=== PATIENT | male | born 1945 | race Caucasian/White ===

== ENCOUNTER 2023-10-31 18:00 | Outpatient (RCR) | payer SELFPAY ==
[~2023-10-31 18:00] MED LIST: ALDACTONE 25MG25 M1 PO; ASPIRIN 81M81 MG/TA2 PO; ATROVENT NASAL15 ML NS; AVAPRO300 M1 PO; BETAPACE 80MG80 MG PO; CARTIA XT120 MG PO; CEPHALEXIN500 M1 PO; COUMADIN 5MG5 MG/TAB PO; COUMADIN 6MG6 MG/TAB PO; COUMADIN5 MG PO; DECADRON 4MG TAB4 MG PO; DEMADEX 20MG20 M1; DOXYCYCLINE HY100 MG PO; FISH OIL 1000MG1 CAP PO; FLOMAX 0.40.4 MG/CAP PO; IPRATROPIUM BROM3 M1 IH; KLOR-CON M2020 MEQ PO; LASIX 20MG TABL20 MG PO; LASIX 40MG TABL40 MG PO; LIPITOR 80MG80 MG PO; LIPITOR20 MG PO; MAG-OX 400400 MG/TAB PO; MICARDIS80 MG PO; NEXIUM 40MG40 MG PO; NORVASC2.5 MG PO; PACERONE200 MG PO; PLAVIX 75MG TAB75 MG PO; PRAVACHOL 40MG40 MG PO; PREDNISONE20 MG PO; PROPAFENONE HC225 MG PO; PROVENTIL0.09 MG/A1 IH; RT SPIRIVA18 MCG IH; SODIUM BICARBON1 POW PO; SPIRIVA RE2.5 MCG/Ac IH; TEFLARO 60600 MG/VIA IV; TIKOSYN0.25 MG PO; TIKOSYN0.5 MG PO; TOPROL XL 50MG50 MG PO; TRELEGY ELLIPT1 EAC1 IH; VANCOCIN HCL1 GM IV; VANCOMYCIN 11 G/VIA1 IV; VITAMIN B122500 MCG PO; VITAMIN D31000 IU PO; VITAMINC1000TA PO
== END 2023-11-02 | disposition home or self-care (01) ==
LOC: COL.CR
DX: J44.0 Chronic obstructive pulmonary disease with (acute) lower respiratory infection (principal)

== ENCOUNTER 2023-12-28 14:41 | Outpatient (RCR) | payer MEDICARE, BC | END 2024-01-02 | disposition home or self-care (01) | LOC: COL.CR | DX: J44.0 Chronic obstructive pulmonary disease with (acute) lower respiratory infection (principal) ==

== ENCOUNTER 2024-01-11 15:00 | Outpatient (RCR) | payer MEDICARE, BC | END 2024-02-02 | disposition home or self-care (01) | LOC: COL.CR | DX: J44.0 Chronic obstructive pulmonary disease with (acute) lower respiratory infection (principal) ==

== ENCOUNTER 2024-03-11 11:15 | Emergency (ER) | payer MEDICARE, BC ==
[~2024-03-11] VITALS: Ht 177.8 cm; Wt 93.6 kg
[~2024-03-11 11:15] MED LIST changes: +B-121000 MCG PO; -VITAMIN B122500 MCG PO
[2024-03-11 11:16] VITALS: TEMP 98
[2024-03-11] MEDS ORDERED: NS 1,000 ML IV ONE (11:45)
[2024-03-11 12:00] LABS: BASO % 0.3 % (0.0-2.0); EOS # 0.2 K/mm3 (0.0-0.7); EOS % 2.6 % (0.0-4.0); GRAN # 4.6 K/mm3 (1.4-6.5); GRAN % 79.6 % (42.2-75.2); HEMATOCRIT 38.7 % (42.0-52.0); HEMOGLOBIN 12.2 g/dl (13.5-18.0); LYMPH # 0.4 K/mm3 (1.2-3.4); LYMPH % 7.4 % (20.0-51.0); MEAN CELL VOLUME 93 fl (80.0-100.0); MEAN CORPUSCULAR HEMOGLOBIN 29 pg (27-31); MEAN CORPUSCULAR HGB CONC 32 g/dl (33.0-37.0); MEAN PLATELET VOLUME 12.4 fl (7.4-10.4); MONO # 0.6 K/mm3 (0.1-0.6); MONO % 9.8 % (1.7-9.3); PLATELET COUNT 140 K/mm3 (130-400); RED BLOOD COUNT 4.18 M/mm3 (4.20-5.60); REDCELL DISTRIBUTION WIDTH-CV 17.2 % (11.5-14.5)
[2024-03-11 12:09] LABS: INR 1.5 (0.8-3.0)
[2024-03-11] MEDS ORDERED: Phytonadione 10 MG in NS 50 ML IV ONE (12:15)
[2024-03-11] MEDS ORDERED: Prothrombin Complex Human 2,000 UNITS in Water For Injection,Sterile 80 ML IV ONE (12:15)
[2024-03-11 12:46] LABS: ALBUMIN 3.5 g/dL (3.4-4.8); BILIRUBIN,TOTAL 1.2 mg/dL (0.2-1.2); CREATININE, serum 0.88 mg/dL (0.72-1.25); POTASSIUM 4.1 mEq/L (3.5-4.5); TOTAL PROTEIN 6.6 g/dl (6.2-8.1)
[2024-03-11 12:52] LABS: TROPONIN-I 0.018 ng/mL (0.00-0.033)
[2024-03-11] MEDS ORDERED: Morphine 4 MG/ML VIAL IV ONE (13:00)
[2024-03-11] MEDS ORDERED: niCARdipine 200 ML IV ONE (14:45)
[2024-03-11 15:05] VITALS: BP 134/62; PULSE 60
== END 2024-03-11 15:07 | disposition short-term general hospital (02) ==
LOC: COL.ER 11:15
PROVIDERS: Physician Assistant
DX: I62.9 Nontraumatic intracranial hemorrhage, unspecified (principal); I48.91 Unspecified atrial fibrillation; J44.9 Chronic obstructive pulmonary disease, unspecified; Z79.01 Long term (current) use of anticoagulants
CPT/HCPCS: J1920; J2270; J3430; J7030; J7168

== ENCOUNTER 2024-03-15 13:46 | Inpatient (IN) | payer MEDICARE, BC ==
[~2024-03-15] VITALS: Ht 177.8 cm; Wt 91.8 kg
[2024-03-15 14:45] VITALS: BP 158/75; PULSE 85; TEMP 97.4
--- NOTE | 2024-03-15 14:45 | NUR ---
PATIENT ADMITED INTO ROOM 337 FROM WITH AT BEDSIDE. A&O. VSS. 02 @ 3L PER NC WITH SATS IN MID TO UPPER 90'S. PATIENT WEARS 02 @ 3L AT HOME, BASELINE. 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 NOTED RIGHT SIDE WEAKNESS IN UPPER & LOWER EXTREMITIES, SOME RIGHT SIDE FACIAL DROOP. 2 ASSIST WITH WALKER INTO BED. HEAD TO TOE ASSESSMENT COMPLETE. AT BEDSIDE. ORIENTED TO ROOM. CALL LIGHT IN REACH. FALL PRECAUTIONS INPLACE.
[2024-03-15] MEDS ORDERED: Sennosides/Docusate 8.6-50 MG TAB PO PRN (15:00)
[2024-03-15] MEDS ORDERED: Polyethylene Glycol 3350 17 GM PDS PO PRN (15:00)
[2024-03-15] MEDS ORDERED: Docusate Sodium 100 MG CAP PO PRN (15:00)
[2024-03-15] MEDS ORDERED: Acetaminophen 325 MG TAB PO PRN (15:00)
[2024-03-15] MEDS ORDERED: NORVASC 5MG5 MG/TAB PO (15:09)
[2024-03-15] MEDS ORDERED: BETAPACE 80MG80 MG PO (15:10)
[2024-03-15] MEDS ORDERED: Albuterol/Ipratropium 3 MG-0.5 MG/3 ML Neb Soln IH PRN (15:15)
[2024-03-15 17:00] VITALS: BP_SYST 143
[2024-03-15 17:04] VITALS: BP 143/75; PULSE 73; TEMP 98.1
[2024-03-15 19:00] VITALS: BP_SYST 143
[2024-03-15] MEDS ORDERED: Budesonide Neb Susp 0.5 MG/2 ML AMP IH SCH (19:00)
--- NOTE | 2024-03-15 19:15 | NUR ---
RECEIVED CHANGE OF SHIFT REPORT FROM DAY SHIFT NURSE. PATIENT UP IN CHAIR, EXIT ALARM ON, CALL LIGHT WITHIN PATIENT'S REACH.
[2024-03-15] MEDS ORDERED: Atorvastatin 80 MG TAB PO SCH (21:00)
[2024-03-16 05:24] VITALS: BP 114/52; PULSE 71; TEMP 97.5
[2024-03-16 07:00] VITALS: BP_SYST 114
--- NOTE | 2024-03-16 07:17 | NUR ---
Change of shift report given to day shift nurse, Bronson. Observed patient requiring frequent cues for pivot transfers due to weakness of RLE compared to LLE. Observed weakness of RUE with movement and holding onto walker with transfers but had equal meredith hand pr internship on command. Speech is slow with patient finding words but is appropriate in conversation. Denied chest pain/shortness of breathe/nausea during the night. Oxygen continued per NC through the night at 3 LPM.
[2024-03-16] MEDS ORDERED: Fluticasone/Umeclidinium/Vilanterol **** subs to Budesonide + Umeclid/Vilant IH SCH (09:00)
[2024-03-16] MEDS ORDERED: Umeclidinium/Vilanterol 62.5-25 MCG INHALATION/INHALER IH SCH (09:00)
[2024-03-16] MEDS ORDERED: amLODIPine 5 MG TAB PO SCH (09:00)
[2024-03-16] MEDS ORDERED: Cyanocobalamin (Vit B-12) 1,000 MCG TAB PO SCH (09:00)
[2024-03-16] MEDS ORDERED: Cholecalciferol (Vit D3) 1000 Units TAB PO SCH (09:00)
[2024-03-16] MEDS ORDERED: Furosemide 40 MG TAB PO SCH (09:00)
[2024-03-16] MEDS ORDERED: Ascorbic Acid 500 MG TAB PO SCH (09:00)
[2024-03-16] MEDS ORDERED: Lidocaine 4% Topical Patch TP SCH (09:58)
--- NOTE | 2024-03-16 13:53 | NUR ---
SW met with patient to complete intake assessment. Patient confirmed that he lives in his home in [place] with Shnoda Jennings [phone]. Patient shared that his PCP is Dr Lara and his pharmacy of choice is [facility]. Patient reports that he has previously had HH with OT/PT. Currently patient reports he uses oxygen, walker, cpap and shower chair, no additional DMEs at this time. Patient reports that he is independent with ADLs and has DPOA on file at his home.
--- NOTE | 2024-03-16 13:55 | NUR ---
Data: Spiritual care visit offered during Tailor'S Aide rounds. Patient declined. Assesment: None. Patient declined. Plan of Care: Chaplains will remain available as requested while Patient is admitted to this hospital.
[2024-03-16 17:57] VITALS: BP 125/81; PULSE 69; TEMP 97.4
[2024-03-16 19:30] VITALS: BP_SYST 125
--- NOTE | 2024-03-16 19:30 | NUR ---
RECEIVED CHANGE OF SHIFT REPORT FROM DAY SHIFT NURSE. PATIENT UP IN CHAIR, EXIT ALARM ON, CALL LIGHT WITHIN PATIENT'S REACH. NO NEEDS REPORTED AT THIS TIME.
[2024-03-17 05:27] VITALS: BP 145/79; PULSE 81; TEMP 97.9
--- NOTE | 2024-03-17 07:14 | NUR ---
Change of shift report given to day shift nurseKaitlyn. Patient up in chair after 0400, observed patient pivot transfered with difficulty needing more cues with using RUE/RLE during bed to chair transfer with gait belt on and using FWW.
[2024-03-17 07:36] VITALS: BP_SYST 145
--- NOTE | 2024-03-17 10:24 | NUR ---
Patient awake, alert and oriented. Drowsy at times this morning but arousable. Weakness noted on right side, hand grasp unequal. Tolerating diet well with mildly thick liquids, medications taken with applesauce, no s/s of aspiration noted. Patient sitting in chair, chair alarm on with call light within reach. Pt denies further needs at this time.
[2024-03-17 18:00] VITALS: BP 122/53; PULSE 75; TEMP 97.7
[2024-03-17 19:19] VITALS: BP_SYST 122
--- NOTE | 2024-03-17 19:19 | NUR ---
RECEIVED CHANGE OF SHIFT REPORT FROM DAY SHIFT NURSE. PATIENT UP IN CHAIR, RESTING WITH EYES CLOSED AND CALL LIGHT WITHIN PATIENT'S REACH. PATIENT DID NOT WAKE DURING REPORT.
[2024-03-17 23:29] VITALS: BP 151/55; PULSE 87; TEMP 97.5
--- NOTE | 2024-03-18 00:20 | NUR ---
PATIENT REPORTED SUDDEN ONSET OF LEFT EYE PAIN, REPORTING PRESSURE "TO HEAD FROM OUTSIDE" TO AREA OF PAIN. DENIES NAUSEA/SHORTNESS OF BREATHE. OBSERVED WHITNEY HAND HOOD MAKER UNCHANGE FROM EARLIER ASSESSMENT OF RIGHT WEAKER THAN LEFT WITH EQUAL SENSATIONS TO TACTILE TOUCH; WHITNEY LEG STRENGTH UNCHANGE WITH RLE WEAKER THAN LLE WITH EQUAL SENSATION TO TACTILE TOUCH. OBSERVED FACIAL GRIMACE WITH EVEN AND PERRLA. PATIENT ALERT AND ORIENTED TO PERSON/PLACE/TIME.
[2024-03-18 00:35] VITALS: BP 134/70; PULSE 79
[2024-03-18] MEDS ORDERED: levETIRAcetam 500 MG in Syringe 1 EACH IV SCH (00:35)
--- NOTE | 2024-03-18 00:36 | NUR ---
PATIENT REPORTS LEFT EYE PAIN HAS SUBSIDED "SLIGHTLY".
[2024-03-18 01:07] VITALS: BP 122/60; PULSE 62
[2024-03-18 01:15] VITALS: BP 126/65; PULSE 72
[2024-03-18 01:36] VITALS: BP 121/50; PULSE 75
--- NOTE | 2024-03-18 01:37 | NUR ---
, RACHELL CALLED, INFORMED OF PATIENT SUDDEN ONSET OF LEFT EYE PAIN, THAT HOSP PROVIDER WAS NOTIFIED, CT HEAD WAS DONE AND THAT PATIENT WILL BE TRANSFERED TO [facility] PER AMBULANCE. PATIENT WAS GIVEN KEPPRA IV, SEE MAR FOR MED GIVEN AFTER SALINE LOCK WAS INSERTED. PATIENT REPORTS THAT HAS LEFT EYE PAIN THAT HAS LESSENED. CONTINUES TO DENY CHEST PAIN/SHORTNESS OF BREATH/NAUSEA AT THIS TIME.
[2024-03-18 01:54] VITALS: BP 128/63; PULSE 75
--- NOTE | 2024-03-18 02:15 | NUR ---
REPORT CALLED TO [facility] AT [facility]. EMS ARRIVAL PENDING. AT BEDSIDE AND INFORMED THAT REPORT CALLED, AND PATIENT TO TRANSFER TO ROOM 207.
[2024-03-18] MEDS ORDERED: Acetaminophen 325 MG TAB PO ONE (02:30)
[2024-03-18] MEDS ORDERED: PROTAMINE IV ONE (02:45)
[2024-03-18] MEDS ORDERED: NS IV ONE (02:45)
--- NOTE | 2024-03-18 02:53 | NUR ---
EMS ARRIVED, PROTAMINE INFUSION STARTED PER D.O. PATIENT PLACED ON EMS CART, ALL BELONGINGS SENT WITH PATIENT, PATIENT DISMISSED OFF UNIT PER EMS CART, LEFT PRIOR TO EMS ARRIVAL AND WILL MEET PATIENT AT [facility].
== END 2024-03-18 02:56 | disposition critical access hospital (66) | DRG 57 ==
PROVIDERS: ADMIT Physical Medicine & Rehabilitation Sports Medicine
DX: I69.351 Hemiplegia and hemiparesis following cerebral infarction affecting right dominant side (principal); I50.32 Chronic diastolic (congestive) heart failure; D69.6 Thrombocytopenia, unspecified; I69.328 Other speech and language deficits following cerebral infarction; I69.393 Ataxia following cerebral infarction; I69.392 Facial weakness following cerebral infarction; I69.322 Dysarthria following cerebral infarction; I69.391 Dysphagia following cerebral infarction; R13.12 Dysphagia, oropharyngeal phase; R91.8 Other nonspecific abnormal finding of lung field; I11.0 Hypertensive heart disease with heart failure; I25.10 Atherosclerotic heart disease of native coronary artery without angina pectoris; G47.33 Obstructive sleep apnea (adult) (pediatric); I48.0 Paroxysmal atrial fibrillation; I73.9 Peripheral vascular disease, unspecified; J44.9 Chronic obstructive pulmonary disease, unspecified; E78.5 Hyperlipidemia, unspecified; M75.121 Complete rotator cuff tear or rupture of right shoulder, not specified as traumatic; N40.0 Benign prostatic hyperplasia without lower urinary tract symptoms; D64.9 Anemia, unspecified; R73.03 Prediabetes; Z79.01 Long term (current) use of anticoagulants; Z95.0 Presence of cardiac pacemaker; Z95.820 Peripheral vascular angioplasty status with implants and grafts; Z79.899 Other long term (current) drug therapy; Z79.51 Long term (current) use of inhaled steroids; Z87.891 Personal history of nicotine dependence; Z74.09 Other reduced mobility; Z99.81 Dependence on supplemental oxygen
CPT/HCPCS: J1650; J1953; J2720

== ENCOUNTER → 2024-04-23 | Outpatient (REF) | payer MEDICARE, BC ==
[~2024-04-23] MED LIST changes: +NORVASC 5MG5 MG/TAB PO
[2024-04-23 17:25] LABS: BAND 3 % (0-10); EOSINOPHIL 2 % (0-4); LYMPHOCYTE 5 % (20.0-51.0); NEUTROPHILS 79 % (42.0-75.2)
[2024-04-23 17:26] LABS: ANISOCYTOSIS 1+; HYPOCHROMIA 1+
[2024-04-23 17:27] LABS: OVALOCYTES 1+; PLATELET ESTIMATE NORMAL (NORMAL); SCHISTOCYTES 1+
== END ==
LOC: ZCOL.LAB 16:17
PROVIDERS: Pediatrics
DX: D64.9 Anemia, unspecified (principal)

== ENCOUNTER 2024-05-15 06:52 | Day surgery (SDC) | payer MEDICARE, BC ==
[~2024-05-15] VITALS: Ht 177.8 cm; Wt 98.6 kg
[2024-05-15 07:31] VITALS: BP 131/73; PULSE 64; TEMP 97.5
[2024-05-15] MEDS ORDERED: TYLENOL 325MG325 MG PO (07:52)
[2024-05-15] MEDS ORDERED: PEPCID 20MG TAB20 MG PO (07:52)
[2024-05-15] MEDS ORDERED: MELATONIN ER10 MG PO (07:53)
[2024-05-15] MEDS ORDERED: ULTRAM 50MG TAB50 MG PO (07:54)
[2024-05-15] MEDS ORDERED: SALONPAS1 EACH TP (07:56)
[2024-05-15] MEDS ORDERED: ZOFRAN ODT4 MG PO (07:57)
[2024-05-15] MEDS ORDERED: FLEXERIL5 MG PO (07:58)
[2024-05-15] MEDS ORDERED: REFRESH LIQUIGE15 M1 OP (07:59)
[2024-05-15] MEDS ORDERED: SYSTANE BALANCE10 M1 OP (07:59)
--- NOTE | 2024-05-15 08:00 | NUR ---
Pt admitted into [facility] at 0705. W/C utilized, transfers to cart with gait belt and assistance of 3. Pt in sling to RUE, compression sleeve on. Flaccid to right side. Oxygen on at 3L/NC. Admission assessments complete. Pt is alert, oriented x4. Pt has son sign consent for him. Family at bedside. Report given to kash Uribe RN. Medications, allergies, and pharmacy confirmed. Heart rate irregular. ASHLEY hose on BLE. Call light within reach.
[2024-05-15 08:40] VITALS: BP 123/44; PULSE 66; TEMP 97.4
[2024-05-15 08:55] VITALS: BP 134/57; PULSE 68; TEMP 97.8
[2024-05-15 09:10] VITALS: BP 124/54; PULSE 65
--- NOTE | 2024-05-15 09:39 | NUR ---
0840- RECIEVED PT FROM THORACENTESIS PROCEDURE VIA CART. 3L NC. VS OBTAINED. PT REQUESTING CRACKERS AND PEANUT BUTTER. NO COMPLAINTS OF PAIN OR NAUSEA. BANDAID TO RIGHT BACK CLEAN, DRY AND INTACT. 0854- CXR DONE PER ORDERS. 0917- CXR READ, OKAY TO DISCHARGE PER [place]. PT STATES HE IS READY TO DISCHARGE. 0930- HELPED PT CHANGE INTO PERSONAL CLOTHING. DISCUSSED DISCHARGE TEACHING WITH PATIENT AND FAMILY AT BEDSIDE. PT SON SIGNED SIGNATURE PAGE. 0934- DISCHARGED TO TRANSPORTATION VEHCILE PROVIDED BY [facility].
[2024-06-13] MEDS ORDERED: TRELEGY ELLIPT1 EACH IH (11:15)
== END 2024-05-15 09:34 ==
LOC: SDCO 06:52
DX: J90 Pleural effusion, not elsewhere classified (principal); I11.0 Hypertensive heart disease with heart failure; I50.30 Unspecified diastolic (congestive) heart failure; J44.9 Chronic obstructive pulmonary disease, unspecified; R91.1 Solitary pulmonary nodule; I27.20 Pulmonary hypertension, unspecified; Z87.891 Personal history of nicotine dependence; Z79.01 Long term (current) use of anticoagulants
CPT/HCPCS: 19804